=== PATIENT | female | born 1985 | race American Indian/Alaskan Native ===

== ENCOUNTER 2016-11-10 08:17 | Outpatient (CLI) | payer OTHER ==
[2016-11-10] MEDS ORDERED: LACTATED RINGERS 500 ML IV ONE (08:27)
[2016-11-10 08:38] VITALS: BP 109/67
[2016-11-10 08:56] LABS: Urine Drugs of Abuse Note Disclamer
[2016-11-10 09:14] LABS: Bilirubin,Urine NEG (Negative); Blood,Urine NEG (Negative); Ketones,Urine NEG (Negative); Leukocyte Esterase,Urine TR (Negative); Nitrite,Urine NEG (Negative); Protein,Urine <15 mg/dL mg/dL (Negative); Urobilinogen,Urine < 2.0 mg/dL (<2.0)
== END 2016-11-10 11:57 | disposition home or self-care (01) ==
LOC: TRG 08:17
PROVIDERS: ATTEND Obstetrics & Gynecology
DX: O47.02 False labor before 37 completed weeks of gestation, second trimester (principal); Z3A.18 18 weeks gestation of pregnancy
CPT/HCPCS: 80307; 81001